=== PATIENT | male | born 1955 ===

== ENCOUNTER 2025-03-17 14:03 | Emergency (ER) | payer MEDICARE ==
[2025-03-17 14:38] LABS: BASOPHILS ABSOLUTE AUTO 0.1 x10^3/uL (0.0-0.2); BASOPHILS PERCENT AUTO 0.6 % (0.2-1.2); EOSINOPHILS ABSOLUTE AUTO 0.4 x10^3/uL (0.0-0.5); EOSINOPHILS PERCENT AUTO 3.8 % (0.0-4.0); IMMATURE GRAN ABSOLUTE AUTO 0.03 x10^3/uL (0.00-0.07); IMMATURE GRAN PERCENT AUTO 0.30 % (0.00-0.43); LYMPHOCYTES ABSOLUTE AUTO 3.3 x10^3/uL (1.0-4.8); LYMPHOCYTES PERCENT AUTO 31.7 % (25.0-50.0); MONOCYTES ABSOLUTE AUTO 0.8 x10^3/uL (0.0-0.8); MONOCYTES PERCENT AUTO 7.9 % (2.0-11.0); NEUTROPHILS ABSOLUTE AUTO 5.9 x10^3/uL (1.8-7.7); NEUTROPHILS PERCENT AUTO 55.7 % (50.0-80.0); PLATELET COUNT,PLT 310 x10^3/uL (130-400); RED BLOOD CELL COUNT 4.64 x10^6/uL (4.5-6.0); WHITE BLOOD CELL COUNT,WBC 10.5 x10^3/uL (4.0-10.0)
[2025-03-17 14:55] LABS: A/G RATIO 1.00; ALANINE AMINOTRANSFERASE,ALT 29 U/L (16-63); ASPARTATE AMNIOTRANSFERASE,AST 21 U/L (15-37); BILIRUBIN TOTAL 0.4 mg/dL (0.2-1.0); BLOOD UREA NITROGEN,BUN 37 mg/dL (7-18); CARBON DIOXIDE,CO2 25 mmol/L (21-32); CHLORIDE,CL 104 mmol/L (98-107); CREATININE 1.7 mg/dL (0.70-1.30); GLUCOSE RANDOM 261 mg/dL (70-99); POTASSIUM,K 4.7 mmol/L (3.5-5.1); PROTEIN TOTAL,TP 6.8 g/dL (6.4-8.2); SODIUM,NA 141 mmol/L (136-145)
[2025-03-17 15:06] LABS: ESTIMATED GFR 44 mL/min (>=60)
[2025-03-17 15:38] LABS: APPEARANCE,URINE CLOUDY (CLEAR); GLUCOSE,URINE 100 mg/dL (NEGATIVE); OCCULT BLOOD,URINE NEGATIVE (NEGATIVE)
[2025-03-17 15:50] LABS: SQUAMOUS EPITHELIAL CELLS,UR FEW /HPF (NOT SEEN)
== END 2025-03-17 16:10 | disposition home or self-care (01) ==
LOC: VM.ED 14:03
DX: R73.9 Hyperglycemia, unspecified (principal)
CPT/HCPCS: 36415; 80053; 81001; 82947; 85025; 96360; 96361; 99283; J7030